=== PATIENT | male | born 1980 | race Caucasian/White ===

== ENCOUNTER → 2020-07-15 06:50 | Outpatient (CLI) | payer OTHER, SELFPAY ==
[2020-07-15 22:34] LABS: SARS-CoV-2 RNA PCR Positive
== END ==
PROVIDERS: PCP Nurse Practitioner Adult Health; Visit Provider Nurse Practitioner Adult Health
DX: U07.1 COVID-19 (principal)
CPT/HCPCS: C9803; U0003; U0005

== ENCOUNTER 2023-09-11 14:42 | Outpatient (CLI) | payer OTHER, SELFPAY ==
--- NOTE | ~2023-09-11 | US_ITS ---
Renal-Bladder ultrasound Clinical History: Renal cyst Technique: Real-time sonographic imaging of the kidneys and urinary bladder was performed. Findings: The right kidney measures 12.1 cm in length and the left kidney measures 11.2 cm. There is no hydronephrosis. Probable nonobstructing left renal stone measuring 12 mm. Renal cortical echogenic ity is within normal limits. Bilateral renal cysts are present, largest the left kidney measuring 7.7 cm in diameter. The urinary bladder is moderately distended at the time of this exam. No intraluminal echoes are iden tified. No abnormal wall thickening is seen. Impression: Probable 12 mm nonobstructing left renal stone. Bilateral renal cysts. Reviewed, dictated and finalized at location . Impression: Probable 12 mm nonobstructing left renal stone. Bilateral renal cysts.
== END 2023-09-11 14:43 ==
PROVIDERS: PCP Nurse Practitioner Adult Health; Visit Provider Nurse Practitioner Adult Health
DX: N28.1 Cyst of kidney, acquired (principal)
CPT/HCPCS: 76775

== ENCOUNTER 2023-09-28 10:07 | Outpatient (CLI) | payer OTHER, SELFPAY ==
[2023-09-28 19:30] LABS: Hematocrit 49.1 % (42.0-52.0); Hemoglobin 15.8 g/dL (14.0-18.0); Mean Corpuscular HGB Conc 32.2 g/dl (32-36); Mean Corpuscular Hemoglobin 28.4 pg (26-34); Mean Corpuscular Volume 88.3 fl (80-100); Mean Platelet Volume 8.9 fl (7.4-10.4); Platelet Count Result 380 k/mm3 (150-375); Red Blood Count 5.56 M/mm3 (4.6-6.20); Red Cell Distribution Width 13.5 % (11.5-14.5); White Blood Count 9.2 K/mm3 (4.5-10.0)
[2023-09-28 21:35] LABS: Alanine Aminotransferase 44 U/L (6-50); Albumin Level 4.9 g/dL (3.5-5.1); Alkaline Phosphatase 122 U/L (38-126); Anion Gap 10 mmol/L (4-12); Aspartate Amino Transferase 65 U/L (17-59); Bilirubin,Total 0.7 mg/dL (0.2-1.3); Blood Urea Nitrogen 16 mg/dL (9-20); Calcium 10.5 mg/dL (8.4-10.2); Carbon Dioxide 28 mmol/L (22-30); Chloride 105 mmol/L (98-107); Cholesterol 301 mg/dL (0-200); Estimated Glomerular Filt Rate > 60; Glucose 92 mg/dL (65-110); HDL Direct 33 mg/dL; Potassium 4.2 mmol/L (3.4-5.0); Sodium 143 mmol/L (137-145); Triglycerides 466 mg/dL (<150)
[2023-09-28 21:47] LABS: LDL Cholesterol Direct 158 mg/dL
[2023-09-28 21:53] LABS: Vitamin D 25 Hydroxy 64.9 ng/mL
[2023-09-28 22:20] LABS: Hemoglobin A1C 5.3 % (<5.7)
[2023-09-28 22:39] LABS: Folic Acid > 20.0 ng/mL (2.76->20)
== END 2023-09-28 10:08 | disposition home or self-care (01) ==
LOC: ANHBWCLAB 10:08
PROVIDERS: PCP Nurse Practitioner Adult Health; Visit Provider Nurse Practitioner Adult Health
DX: F41.9 Anxiety disorder, unspecified (principal); E55.9 Vitamin D deficiency, unspecified; E66.9 Obesity, unspecified; Z13.9 Encounter for screening, unspecified
CPT/HCPCS: 36415; 80053; 80061; 82306; 82607; 82746; 83036; 84443; 85027

== ENCOUNTER 2023-11-10 00:46 | Day surgery (SDC) | payer OTHER, SELFPAY ==
[2023-11-01 08:31] VITALS: BMI 30.4
--- NOTE | 2023-11-01 08:38 | PC.NURSE ---
Report to the Outpatient Waiting Room, entrance under the green pavilion located off [facility], at time _0600_ on date _[id number]_. Planned Procedure Time: _0730_. Time changes happen often and if your time is changed the preop area will call you the afternoon before. - You and your visitor will be asked to self-screen and do not enter if you have any COVID symptoms. - A mask is optional within the hospital at this time. Patients may have clear liquids (water, carbonated beverages, clear teas, apple juice) until 3 hours prior to surgery with a maximum of 20 ounces. - No food from midnight until time of surgery Take the following medications with a SIP of water the morning of surgery: __None DO NOT STOP ANY OF YOUR OTHER PRESCRIPTION MEDICATIONS PRIOR TO SURGERY ?EXCEPT THE FOLLOWING Medications to discontinue per physician ___Multivitamin Date to take last yewd___[id number] Please no make-up, nail barbadian, hairspray, perfume, deodorant, or body powder the day of surgery. No jewelry (including any body piercings) or valuables the day of surgery, leave them at home. Please take a shower or bath the night before, or the morning of, surgery with an antibacterial soap. Wear comfortable, loose fitting clothing. - Jewelry must be removed prior to entering the operating room. Rings and piercings that are not removed may be cut off. - The hospital will not accept responsibility for valuables. - Please leave all valuables, including medications, at home the day of surgery. If you are going home after surgery, a licensed city driver must drive you home. - NO public transportation without another adult if you receive anesthesia. - We recommend that an adult stay with you for 24 hours following discharge. - We also recommend that you do not drive, make important decision, drink alcoholic beverages, or take any drugs that were not prescribed by your health care provider for at least 24 hours after your discharge time. Follow any additional instructions given to you from your surgeon. If you or anyone in your household have experienced Covid symptoms in the past week, please notify your surgeon or the nurse liaison at the phone number below for possible testing. Telephone instructions given to _Chad__and asked if any additional questions and then verbalized understanding. Patient advised to call surgeon office or pre surgery nurse liaison [phone] if any additional questions.
[2023-11-10] VITALS (9 sets, daily range): BP systolic 118–143; BP diastolic 68–96; PULSE 67–88; RESP 14–17; TEMP 36.2–36.8; O2SAT 96–100
[2023-11-10] MEDS: LACTATED RINGERS 1,000 ML 30 ML IV CONT (07:00)
--- NOTE | 2023-11-10 07:14 | WPDHPUPDATE1 ---
History and Physical Update Update Date/Time: 11/10/23 07:14 History and Physical has been reviewed, including an updated exam of the patient. There are NO changes in the patient's condition. Risks, benefits, and alternatives have been discussed and questions answered. Patient agrees to proceed with procedure.
--- NOTE | 2023-11-10 07:16 | WPDANESEPPF ---
Anes - Initial Pre Proc Eval Procedure: Operation Date: 11/10/23 07:30 Proposed Procedures p Excision Left Post Auricular Subcutaneous Mass - Patric Bauman MD Date/Time: 11/10/23 07:16 Surgeon: Patric Bauman MD Pre Op Diagnosis: left post auricular subcutaneous mass Patient Data Age: 43 Gender: M Height: 1.73 m Weight: 89.5 kg Last Vital Signs Temp 36.8 C 11/10/23 06:50 Pulse 88 11/10/23 06:50 Resp 14 11/10/23 06:50 BP 143/96 H 11/10/23 06:50 Pulse Ox 96 11/10/23 06:50 O2 Del Method Room Air 11/10/23 06:50 Allergies Allergy/AdvReac Type Severity Reaction Status Date / Time guaifenesin Allergy Intermediate Rash Verified 11/10/23 07:02 Home Medications Medication Instructions Recorded Confirmed Type lorazepam 0.5 mg tablet 0.5 mg PO DAILY PRN anxiety #30 08/30/23 11/01/23 Rx tabs pravastatin 20 mg tablet 20 mg PO QHS #90 tabs 10/02/23 11/01/23 Rx multivitamin 1 tablet PO DAILY 11/01/23 11/01/23 History Patient hx anesthesia problems: none Family hx anesthesia problems: none Results Review: All pre-operative results and documents have been reviewed as part of the pre-operative evaluation. [facility] Past Medical History Medical History Anxiety Asthma Chronic GERD Family History Family History Father Asthma History of ETOH abuse Grandparent Diabetes mellitus Social History Social History Smoking packs per day: 0.5 Smoking cigarettes per day: 10.0 Years smoked: 13 Smoking pack-years: 6.50 Smoking status: Former smoker Tobacco type: cigarettes Smoking end date: 11/01/11 Alcohol intake: current Alcohol use details: Once a month [place] Substance use type: does not use Do You Feel Safe in your Home?: Yes Lack of Transportation: No Lack of Food: Never True Current Housing: I Have Housing Concerned About Future Housing: No Difficulty Paying Gas/Electric Bills: No Difficulty Paying for Meds: No Currently Unemployed: No Education: Bachelor's Degree Difficulty w/ Childcare or Family Care: No Living arrangements: with family 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 Gender identity (if verbalized by the patient): Male Spiritual care concerns: No Agree to blood products: Yes Anes - Eval Final PreProcedure Day of Procedure 11/10/23 07:16 Patient weight: overweight Heart: regular rate and rhythm Lungs: clear to auscultation Airway: Mallampati scale class II Neurological: alert and oriented Last oral intake: >/= 8 hours ASA classification: II Emergent: no Anesthetic plan: proceed Anesthesia type and monitoring: general LMA and standard monitoring Results Review: All pre-operative results and documents have been reviewed as part of the pre-operative evaluation. Informed Consent: The patient's anesthetic plan and its attendant risks and benefits were discussed with the patient/family/POA. Questions were solicited and answers provided to the satisfaction of the patient/family/POA.
[2023-11-10] MEDS: ceFAZolin 2 GM/D5W 50 ML 2 GM/50 ML BAG IVPB (07:27)
[2023-11-10] MEDS: LIDO 1%/EPINEPHRINE 1:100,000 50 ML VIAL 20 ML INFILTRATE (07:54)
[2023-11-10] MEDS: KETOROLAC 15 MG/ML VIAL (*BKC) IV PUSH (07:57)
--- NOTE | 2023-11-10 08:23 | P.OP_ITS ---
Procedure Note - Detailed Date of Procedure 11/10/23 Pre-op Diagnosis left post auricular subcutaneous mass Post-op Diagnosis Other (Left postauricular neck intramuscular lipoma) Procedure Performed Excision left postauricular neck intramuscular lipoma. Surgeon Patric Bauman MD Anesthesia General Indications Patient is a 43-year-old male who has a slowly enlarging subcutaneous mass in the left postauricular neck region. It has been slowly enlarging last 10 years. Is now becoming sore and presents now for excision the mass. Findings Patient had a [id number] partially intramuscular subcutaneous mass consistent with intramuscular lipoma. Well encapsulated and was completely removed. Description of Procedure After informed consent was obtained patient brought to the operating room was placed supine position and then placed under general LMA anesthesia. He was then turned of the right lateral decubitus position on operating table making sure that all the pressure points were well padded. The area the left post auricular neck region was then prepped and draped usual sterile fashion. A time-out was then performed correctly identifying the patient as well as procedure to be performed. Site marking was verified. He was given preoperative IV antibiotics. I then anesthetized the area over the palpable subcutaneous mass with 1% lidocaine mixed with 0.5% Marcaine with some epinephrine. I then made an oblique incision in the skin with a scalpel and dissected down through the dermis skin with a scalpel. Then utilized electrocautery I dissected down through the subcu tissue I encountered the caps ule of the lipomatous mass. I then proceeded to continue dissection around the capsule of the mass as I got deeper I found that it was partially intramuscular. I very carefully dissected the muscle tissue off the capsule of the subcutaneous mass. Once I had the flu the excised out it measured [id number]. It was sent to pathology for examination. I then irrigated out the incision sterile saline solution hemostasis was good. I then closed the incision by placing 3-0 Vicryl sutures in the fascia of the muscle. This is then followed by another layer in with 3-0 Vicryl suture the subcutaneous tissues. The skin edges were then approximated utilizing a running subcuticular 4 Monocryl suture. The incision was then cleaned and then skin glue was applied. The patient tolerated the procedure well no complications. All sponges, needles, and instrument counts were correct at the end procedure. EBL was _5__cc. The patient was awakened and taken to recovery in stable and satisfactory condition. Implants None Estimated Blood Loss 5 Drains No Packing No Pathology Yes (Lipoma sent to pathology) Complications No immediate complications Condition Stable Disposition PACU [facility] Billing Surgery - Charge Forward: Surgery Billing
== END 2023-11-10 10:02 | disposition home or self-care (01) ==
PROVIDERS: PCP Nurse Practitioner Adult Health; Visit Provider Surgery
PROC: (CPT 21554; principal; 2023-11-10 07:30)
DX: D17.0 Benign lipomatous neoplasm of skin and subcutaneous tissue of head, face and neck (principal); F41.9 Anxiety disorder, unspecified; Z87.891 Personal history of nicotine dependence
CPT/HCPCS: 21554; 88304; A9270; J0690; J1100; J1885; J2250; J2405; J2704; J7120

== ENCOUNTER 2024-01-19 09:19 | Outpatient (CLI) | payer OTHER, SELFPAY ==
--- NOTE | ~2024-01-19 | CT_ITS ---
EXAMINATION: CT abdomen pelvis wo con DATE: 01/19/2024 09:33 INDICATION: Kidney calculus TECHNIQUE: Computed tomography (CT) of the abdomen and pelvis was performed without intravenous contr ast. Automated exposure control and iterative reconstruction technique were employed. Exam dose: 525 .45 mGy-cm total exam DLP. COMPARISON: 09/11/2023 bilateral renal ultrasound examination 05/26/2014 gallbladder ultrasound examination FINDINGS: The lung bases are clear. Normal heart size. No pericardial or pleural effusion. The liver, spleen, pancreas, gallbladder, bile and pancreatic ducts as well as the adrenal glands are unremarkable. No ureteral calculus or hydroureteronephrosis is noted. Multiple bilateral renal lesions are noted: Right kidney: Anterior upper pole right renal 11.8 mm lesion with attenuation of 15 Hounsfield units Medial mid right renal 12 mm lesion with attenuation of 12.6 Hounsfield units Mid anterior right 0.6 cm lesion with attenuation of 7 Hounsfield units Lower pole right kidney 2.3 cm exophytic lesions with attenuation of 22 Hounsfield units Left kidney: More numerous left renal lesions are noted, the largest measuring approximate 5.9 x 6.9 cm at the low er pole, with attenuation of 13 Hounsfield units There are multiple additional mid and lower pole left renal hypoattenuating lesions, one with minimal wall calcification. Normal caliber of the abdominal aorta. No intraperitoneal or retroperitoneal or pelvic mass lesion or adenopathy or ascites is noted. The urinary bladder and prostate gland appear unremarkable. No bowel obstruction or intraperitoneal free air is detected. No suspicious osteolytic or osteoblastic lesions are noted. IMPRESSION: Bilateral nonspecific renal hypoattenuating lesions, many if not all may be cysts. Howev er, these are not definitively evaluated on this limited noncontrast examination. Reviewed, dictated and finalized at Location A. Reviewed, dictated and finalized at location J. IMPRESSION: Bilateral nonspecific renal hypoattenuating lesions, many if not a ll may be cysts. However, these are not definitively evaluated on this limited noncontrast examination.
== END 2024-01-19 09:20 ==
PROVIDERS: PCP Nurse Practitioner Adult Health; Visit Provider Nurse Practitioner Adult Health
DX: N20.0 Calculus of kidney (principal)
CPT/HCPCS: 74176

== ENCOUNTER 2024-01-26 14:43 | Outpatient (CLI) | payer OTHER, SELFPAY ==
--- NOTE | ~2024-01-26 | US_ITS ---
EXAMINATION: US renal BI DATE: 01/26/2024 15:19 INDICATION: Disorder of kidneys and ureter TECHNIQUE: Multiple ultrasound grayscale images of the kidneys were obtained. COMPARISON: None. FINDINGS: The right kidney measures 11.1 x 6.6 x 6.6 cm. The left kidney measures 10.8 x 6.3 x 5.9 cm. The kidn eys demonstrate normal echogenicity. There are bilateral renal cysts largest on the left measuring 6. 3 cm and 2 smaller cysts at the right kidney measuring 2.5 cm and 2.1 cm. There is no hydronephrosis in either kidney. Linear hyperechoic regions along the dependent aspect of a few of the smaller cyst s at the lower pole of the left kidney which are without evidence posterior acoustic shadowing most l ikely small moderate mural calcification or dependently layering milk of calcium. The bladder is norm al. IMPRESSION: 1. Bilateral renal cysts with small amount of hyperechoic calcification at the periphery of a few sm aller cysts in the lower pole of the left kidney likely representing either mural calcification or de pendent layering milk of calcium. 2. No hydronephrosis. Reviewed, dictated and finalized at location A. IMPRESSION: 1. Bilateral renal cysts with small amount of hyperechoic calcification at the periphery of a few smaller cysts in the lower pole of the left kidney likely r epresenting either mural calcification or dependent layering milk of calcium. 2. No hydronephrosis.
== END 2024-01-26 14:44 ==
PROVIDERS: PCP Nurse Practitioner Adult Health; Visit Provider Nurse Practitioner Adult Health
DX: N28.9 Disorder of kidney and ureter, unspecified (principal); N28.1 Cyst of kidney, acquired
CPT/HCPCS: 76775

== ENCOUNTER 2024-04-22 13:57 | Outpatient (CLI) | payer OTHER, SELFPAY ==
--- NOTE | ~2024-04-22 | MR_ITS ---
EXAMINATION: MR abdomen wo/w con DATE: 04/22/2024 14:56 INDICATION: Kidney mass. TECHNIQUE: Magnetic resonance imaging (MRI) of the abdomen was performed without and with 18 mL Multi Tona intravenous contrast. COMPARISON: Ultrasound 01/26/2024, CT abdomen and pelvis 01/19/2024 FINDINGS: There is diffuse hepatic steatosis. The gallbladder, spleen, pancreas, and adrenal glands are normal. There are cysts and hemorrhagic cysts in the kidneys measuring up to 7.4 cm on the left. There are n o dilated loops of bowel. There are no pathologically enlarged lymph nodes. There is no free intraper itoneal fluid. IMPRESSION: 1. Benign cysts and hemorrhagic cysts in the kidneys. Reviewed, dictated and finalized at location A. [facility]OR URANIUM PROCESSING
== END 2024-04-22 13:58 | disposition home or self-care (01) ==
LOC: MICIMG 13:57
PROVIDERS: PCP Nurse Practitioner Adult Health; Visit Provider Urology
DX: N28.89 Other specified disorders of kidney and ureter (principal); N28.1 Cyst of kidney, acquired
CPT/HCPCS: 74183; A9577

== ENCOUNTER 2024-05-21 14:00 | Outpatient (CLI) | payer OTHER, SELFPAY ==
[2024-05-21 19:47] LABS: Basophils Absolute Auto 0.1 K/mm3 (0.0-0.1); Basophils Percent Auto 1.1 % (0.2-1.2); Eosinophils Absolute Auto 0.3 K/mm3 (0-0.3); Eosinophils Percent Auto 3.3 % (0-4.4); Hematocrit 46.4 % (42.0-52.0); Hemoglobin 15.7 g/dL (14.0-18.0); Immature Granulocyte Absolute 0.03 K/mm3 (0.00-0.031); Immature Granulocyte Percent A 0.3 % (0-0.5); Lymphocytes Absolute Auto 2.75 K/mm3 (0.9-3.2); Lymphocytes Percent Auto 30.5 % (18.3-44.2); Mean Corpuscular HGB Conc 33.8 g/dl (32-36); Mean Corpuscular Hemoglobin 29.3 pg (26-34); Mean Corpuscular Volume 86.7 fl (80-100); Mean Platelet Volume 8.6 fl (7.4-10.4); Monocytes Absolute Auto 0.8 K/mm3 (0.1-0.6); Monocytes Percent Auto 9.3 % (2.6-8.5); Neutrophils Percent Auto 55.5 % (45.5-73.1); Platelet Count Result 365 k/mm3 (150-375); Red Blood Count 5.35 M/mm3 (4.6-6.20); Red Cell Distribution Width 12.8 % (11.5-14.5)
[2024-05-21 19:57] LABS: Alanine Aminotransferase 31 U/L (6-50); Albumin Level 4.6 g/dL (3.5-5.1); Alkaline Phosphatase 127 U/L (38-126); Anion Gap 5 mmol/L (4-12); Aspartate Amino Transferase 72 U/L (17-59); Bilirubin,Total 0.6 mg/dL (0.2-1.3); Blood Urea Nitrogen 16 mg/dL (9-20); Calcium 10.1 mg/dL (8.4-10.2); Carbon Dioxide 28 mmol/L (22-30); Chloride 106 mmol/L (98-107); Cholesterol 295 mg/dL (0-200); Estimated Glomerular Filt Rate > 60; Glucose 86 mg/dL (65-110); HDL Direct 30 mg/dL; Potassium 4.3 mmol/L (3.4-5.0); Sodium 139 mmol/L (137-145); Triglycerides 441 mg/dL (<150)
[2024-05-21 20:09] LABS: LDL Cholesterol Direct 157 mg/dL
[2024-05-21 21:06] LABS: Vitamin D 25 Hydroxy 38.5 ng/mL
== END 2024-05-21 14:01 | disposition home or self-care (01) ==
LOC: ANHBWCLAB 14:02
PROVIDERS: PCP Nurse Practitioner Adult Health; Visit Provider Nurse Practitioner Adult Health
DX: E55.9 Vitamin D deficiency, unspecified (principal); I10 Essential (primary) hypertension; Z13.29 Encounter for screening for other suspected endocrine disorder
CPT/HCPCS: 36415; 80053; 80061; 82306; 84443; 85025

== ENCOUNTER 2024-10-03 08:40 | Outpatient (CLI) | payer OTHER, SELFPAY ==
--- OUTSIDE RECORDS SUMMARY | 2024-10-03 08:48 | XMS_ITS | Clinical Summary ---
Author Organization [facility] Address [address] [place] [address] Care Team Providers Care Cad Application Support Specialist Name Role Phone Suzanne Flores LAWRENCE Primary Care Provider [phone] Allergies Active Allergy Reactions Criticality Noted Date Comments Guaifenesin Rash Medium 06/16/2021 Reaction: Rash, Medications vit D3-vit A-ewrhbocbj-os ps [phone] ggdq-cew-wf-mg tablet Take by mouth Active atorvastatin (LIPITOR) 10 mg tablet Take 10 mg by mouth daily Active promethazine-D M (PROMETHAZINE- DM) 1.25-3 mg/mL syrup Take 5 mL by mouth 4 (four) times a day as needed for cough (And runny nose) Collaborating physician Simone Lr MD 118 mL 2 Active naproxen (NAPROSYN) 375 mg tablet Take 1 tablet (375 mg total) by mouth 2 (two) times a day with meals P.r.n. pain and/ or fever. Collaborating physician Simone Lr MD 20 tablet 2 Active LORazepam (Ativan) 1 mg tabletIndicati ons:anxiety Take 1 tablet (1 mg total) by mouth every 8 (eight) hours as needed for anxiety for up to 12 doses 12 tablet 4 Active Active Problems Problem Noted Date Diagnosed Date Suspected COVID-19 virus infection 06/16/2021 Acute viral syndrome 06/16/2021 Social History Tobacco Use Types Packs/Day Years Used Date Smoking Tobacco: Former Personal Safety Answer Date Recorded Getting School Help Needed Not on file 07/29 Sex and Gender Information Value Date Recorded Sex Assigned at Not on file Legal Sex 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:36 AM 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 Gender Identity Not on file Sexual Orientation Not on file Obstetrics History Last Filed Vital Signs Vital Sign Reading Time Taken Comments Blood Pressure 140/102 07/29/2023 10:15 PM SPRING LAYER Pulse 97 07/29/2023 10:15 PM SPRING LAYER Temperature 37.3 C (99.1 F) 07/29/2023 10:15 PM SPRING LAYER Respiratory Rate 18 07/29/2023 10:15 PM SPRING LAYER Oxygen Saturation 98% 07/29/2023 10:15 PM SPRING LAYER Inhaled Oxygen Concentration - - Weight 90.7 kg (200 lb) 07/29/2023 9:20 PM SPRING LAYER Height 172.7 cm (5' 8 ) 07/29/2023 9:20 PM SPRING LAYER Body Mass Index 30.41 07/29/2023 9:20 PM SPRING LAYER Plan of Treatment Health Maintenance Due Date Last Done Comments Depression Screening 1980 Hepatitis C Screening 1980 DTaP/Tdap/Td Vaccine (1 - Tdap) 1991 Varicella Vaccines (1 of 2 - 13+ 2-dose series) 1993 Hepatitis B Screening 1998 Regular Well Visit/Exam 18-64 1998 Influenza Vaccine (#1) 2024 06/15/2013 HPV Vaccines Aged Out No longer eligi ble based on patient's age to complete this topic Pneumococcal vaccine <65 Aged Out No longer eligible based on patient's age to complete this topic Insurance ([place]) [address] [id number] [facility] CHOICE PLUS [facility] HMO/PPO Address: [facility] [address] [place] [address] [facility] CHOICE PLUS [facility] H[facility]/PPO Address: [facility] [address] [place] [address] Care Teams Cad Application Support Specialist Relationship Specialty Start Date End Date Suzanne Flores NP PCP - General 06/16/21
--- OUTSIDE RECORDS SUMMARY | 2024-10-03 08:48 | XMS_ITS | CONTINUITY OF CARE DOCUMENT ---
Author Name grzegorzyolandanestor Address Unknown Organization [facility] Address [id number] [place] [address] [address] [place] [address] Phone [phone] Care Team Providers Care Machine Hoop Maker Helper Name Role Phone Sawyer العراقي MD Unavailable [phone] DAWSON GIL MD Unavailable DAWSON GIL MD Unavailable VITAL SIGNS Date Observation Value Provider blood pressure, diastolic 82 mm[Hg] Parag Nielsen RN blood pressure, systolic 122 mm[Hg] Edgar Nielsen RN SOCIAL HISTORY Date Observation Value Provider smoking status quit Edgar Nielsen RN FUNCTIONAL STATUS Date Observation Value Provider periodic limb movement index absent (0) Edgar Nielsen RN INSURANCE PROVIDERS Payer name Policy type / Coverage type [place] red republican ID [facility] [id number]
--- OUTSIDE RECORDS SUMMARY | 2024-10-03 08:48 | XMS_ITS | Referral Summary ---
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 Gender Identity Not on file Sexual Orientation Not on file Last Filed Vital Signs Vital Sign Reading Time Taken Comments Blood Pressure 140/102 07/29/2023 10:15 PM PROPELLER ENGINEER Pulse 97 07/29/2023 10:15 PM PROPELLER ENGINEER Temperature 37.3 C (99.1 F) 07/29/2023 10:15 PM PROPELLER ENGINEER Respiratory Rate 18 07/29/2023 10:15 PM PROPELLER ENGINEER Oxygen Saturation 98% 07/29/2023 10:15 PM PROPELLER ENGINEER Inhaled Oxygen Concentration - - Weight 90.7 kg (200 lb) 07/29/2023 9:20 PM PROPELLER ENGINEER Height 172.7 cm (5' 8 ) 07/29/2023 9:20 PM PROPELLER ENGINEER Body Mass Index 30.41 07/29/2023 9:20 PM PROPELLER ENGINEER Plan of Treatment Not on file Insurance [facility] H[facility]/PPO Address: [place] [address] [facility] H[facility]/PPO Address: [address] [place], [place] [id number] Care Teams Curbing Stonecutter Relationship Specialty Start Date End Date Suzanne Flores NP PCP - General 06/16/21
--- OUTSIDE RECORDS SUMMARY | 2024-10-03 08:48 | XMS_ITS | Clinical Summary ---
Author Organization [facility] rofessional Office [facility] Address [address] [place] [address] Care Team Providers Care Box Folding Machine Operator Name Role Phone Unavailable Primary Care Provider Unavailabl e Social History Tobacco Use Types Packs/Day Years Used Date Smoking Tobacco: Never Assessed Sex and Gender Information Value Date Recorded Sex Assigned at Not on file Legal Sex Male 1:45 PM SEC[employer] OFF[employer]ERS [employer]DS Gender Identity Not on file Sexual Orientation Not on file Plan of Treatment Health Maintenance Due Date Last Done Comments DTAP/TDAP/TD VACCINES (1 - Tdap) 1999 HEPATITIS B VACCINES (1 of 3 - 19+ 3-dose series) 1999 INFLUENZA VACCINE (#1) 2024 HPV VACCINES Aged Out No longer eligi ble based on patient's age to complete this topic
[2024-10-03 20:56] LABS: Alanine Aminotransferase 32 U/L (6-50); Albumin Level 4.7 g/dL (3.5-5.1); Alkaline Phosphatase 143 U/L (38-126); Anion Gap 11 mmol/L (4-12); Aspartate Amino Transferase 50 U/L (17-59); Bilirubin,Total 0.6 mg/dL (0.2-1.3); Blood Urea Nitrogen 14 mg/dL (9-20); Calcium 9.6 mg/dL (8.4-10.2); Carbon Dioxide 25 mmol/L (22-30); Chloride 103 mmol/L (98-107); Cholesterol 291 mg/dL (0-200); Estimated Glomerular Filt Rate > 60; Glucose 92 mg/dL (65-110); HDL Direct 32 mg/dL; Potassium 4.5 mmol/L (3.4-5.0); Sodium 139 mmol/L (137-145); Triglycerides 511 mg/dL (<150)
[2024-10-03 21:06] LABS: LDL Cholesterol Direct 127 mg/dL
[2024-10-03 21:22] LABS: Vitamin D 25 Hydroxy 32.4 ng/mL
== END 2024-10-03 08:41 | disposition home or self-care (01) ==
PROVIDERS: PCP Nurse Practitioner Adult Health; Visit Provider Nurse Practitioner Adult Health
DX: E55.9 Vitamin D deficiency, unspecified (principal); E78.5 Hyperlipidemia, unspecified
CPT/HCPCS: 36415; 80053; 80061; 82306

== ENCOUNTER 2025-01-01 10:19 | Outpatient (CLI) | payer OTHER, SELFPAY ==
--- OUTSIDE RECORDS SUMMARY | 2025-01-01 10:44 | XMS_ITS | Clinical Summary ---
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 Gender Identity Not on file Sexual Orientation Not on file Obstetrics History Last Filed Vital Signs Vital Sign Reading Time Taken Comments Blood Pressure 140/102 07/29/2023 10:15 PM FILTER PRESS TENDER Pulse 97 07/29/2023 10:15 PM FILTER PRESS TENDER Temperature 37.3 C (99.1 F) 07/29/2023 10:15 PM FILTER PRESS TENDER Respiratory Rate 18 07/29/2023 10:15 PM FILTER PRESS TENDER Oxygen Saturation 98% 07/29/2023 10:15 PM FILTER PRESS TENDER Inhaled Oxygen Concentration - - Weight 90.7 kg (200 lb) 07/29/2023 9:20 PM FILTER PRESS TENDER Height 172.7 cm (5' 8) 07/29/2023 9:20 PM FILTER PRESS TENDER Body Mass Index 30.41 07/29/2023 9:20 PM FILTER PRESS TENDER Plan of Treatment Health Maintenance Due Date Last Done Comments Depression Screening 1980 Hepatitis C Screening 1980 DTaP/Tdap/Td Vaccine (1 - Tdap) 1991 Varicella Vaccines (1 of 2 - 13+ 2-dose series) 1993 Hepatitis B Screening 1998 Regular Well Visit/Exam 18-64 1998 HPV Vaccines (1 - 3-dose SCD M series) 2007 Influenza Vaccine (#1) 2025 06/15/2013 Pneumococcal vaccine <65 Aged Out No longer eligible based on patient's age to complete this topic Insurance ([place]) [address] [id number] [facility] CHOICE PLUS [facility] H[facility]/PPO Address: [facility] [address] [place] [address] [facility] CHOICE PLUS [facility] H[facility]/PPO Address: [facility] [address] [place] [address] Care Teams Bus And Sys Integration Senior Manager Relationship Specialty Start Date End Date Suzanne Flores NP PCP - General 06/16/21
--- OUTSIDE RECORDS SUMMARY | 2025-01-01 10:44 | XMS_ITS | Clinical Summary ---
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
--- OUTSIDE RECORDS SUMMARY | 2025-01-01 10:44 | XMS_ITS | Referral Summary ---
Author Organization [facility] Address [address] [place] [address] Care Team Providers Care Environmental Engineer Name Role Phone Suzanne Flores LAWR[place] Primary Care Provider [phone] Allergies Active Allergy Reactions Criticality Noted Date Comments Guaifenesin Rash Medium 06/16/2021 Reaction: Rash, Medications vit D3-vit V-[id number] ps [id number] ikon-irq-xx-mg tablet Take by mouth Active atorvastatin (LIPITOR) [...] on file Legal Sex Male 3:36 AM [employer] Gender Identity Not on file Sexual Orientation Not on file Last Filed Vital Signs Vital Sign Reading Time Taken Comments Blood Pressure 140/102 07/29/2023 10:15 PM [employer] Pulse 97 07/29/2023 10:15 PM [employer] Temperature 37.3 C (99.1 F) 07/29/2023 10:15 PM [employer] Respiratory Rate 18 07/29/2023 10:15 PM [employer] Oxygen Saturation 98% 07/29/2023 10:15 PM [employer] Inhaled Oxygen Concentration - - Weight 90.7 kg (200 lb) 07/29/2023 9:20 PM [employer] Height 172.7 cm (5' 8) 07/29/2023 9:20 PM [employer] Body Mass Index 30.41 07/29/2023 9:20 PM [employer] Plan of Treatment Not on file Insurance Care Teams Environmental Engineer Relationship Specialty Start Date End Date Suzanne Flores NP PCP - General 06/16/21
[2025-01-01 20:12] LABS: Cholesterol 204 mg/dL (0-200); HDL Direct 38 mg/dL; Triglycerides 124 mg/dL (<150)
== END 2025-01-01 10:20 | disposition home or self-care (01) ==
LOC: ANHBWCLAB 10:20
PROVIDERS: PCP Nurse Practitioner Adult Health; Visit Provider Nurse Practitioner Adult Health
DX: E78.5 Hyperlipidemia, unspecified (principal)
CPT/HCPCS: 36415; 80061

== ENCOUNTER 2025-02-28 15:33 | Outpatient (CLI) | payer OTHER, SELFPAY ==
--- NOTE | ~2025-02-28 | US_ITS ---
US renal BI 02/28/2025 15:52 Procedure: Realtime transabdominal ultrasound of the kidneys and bladder. Indication: Follow-up renal cysts Comparison: 01/26/2024 Findings: Renal echotexture is normal bilaterally without hydronephrosis or renal calculus. There are bilateral renal cysts, largest on the right measuring 2.7 cm centimeters in largest on the left measuring 7.6 cm. No suspicious solid masses. There is a stable cyst in the left kidney with associated calcification, likely benign. The right kidney measures 10.1 cm and left kidney measures 11.4 cm. Bladder within normal limits. Impression: 1: Bilateral renal cysts. No significant change. Reviewed, dictated and finalized at location O. Impression: 1: Bilateral renal cysts. No significant change.
== END 2025-02-28 15:34 | disposition home or self-care (01) ==
PROVIDERS: PCP Nurse Practitioner Adult Health; Visit Provider Nurse Practitioner Adult Health
DX: N28.1 Cyst of kidney, acquired (principal)
CPT/HCPCS: 76770